=== PATIENT | female | born 1995 | race Caucasian/White ===

== ENCOUNTER 2017-02-08 17:53 | Emergency (ER) | payer OTHER ==
[~2017-02-08] VITALS: Ht 165.1 cm; Wt 90.0 kg
[2017-02-08] MEDS ORDERED: IBUPROFEN 600MG TABLET PO ONE (22:45)
[2017-02-09 00:19] VITALS: BP 106/60
== END 2017-02-09 00:23 | disposition home or self-care (01) ==
LOC: ER 18:46
DX: H72.91 Unspecified perforation of tympanic membrane, right ear (principal)
CPT/HCPCS: 99283

== ENCOUNTER 2020-11-14 19:30 | Observation (INO) | payer OTHER ==
[~2020-11-14] VITALS: Ht 162.6 cm; Wt 109.8 kg
== END 2020-11-14 21:15 | disposition home or self-care (01) ==
LOC: 8 EST LDRP 19:30
PROVIDERS: ADMIT Specialist; ATTEND Specialist
DX: O34.63 Maternal care for abnormality of vagina, third trimester (principal); Z3A.39 39 weeks gestation of pregnancy
CPT/HCPCS: 59025; G0378; 99281